=== PATIENT | male | born 1975 | race Two or more races ===

== ENCOUNTER 2018-02-17 08:10 | Inpatient (IN) | payer OTHER ==
[2018-02-17 08:55] VITALS: BMI 29.7
--- NOTE | 2018-02-17 09:33 | HP ---
CIWA Score - CIWA Score Nausea/Vomitin Muscle Tremors: 3 Anxiety: 2 Agitation: 2 Paroxysmal Sweats: 1-Minimal Palms Moist Orientation: 0-Oriented Tacttile Disturbances: 1-Very Mild Itch/Numbness Auditory Disturbances: 1-Very Mild Visual Disturbances: 1-Very Mild Sensitivity Headache: 2-Mild CIWA-Ar Total Score: 15 Admission ROS BHS - HPI Chief Complaint: i need help to stop drinking alcohol,cocaine,pcp,marijuana Allergies/Adverse Reactions: Allergies Allergy/AdvReac Type Severity Reaction Status Date / Time No Known Allergies Allergy Verified 02/17/18 08:50 History of Present Illness: this 42 years old male with alcohol,cocaine,marijuana,pcp dependence,seeking detox,last treatment 02/21/11 to 03/11/11 rehab as [facility] history of hypertension on medication nicotine dependence longest period of sobriety 1 year depression pain in left foot for 1 year s/p surgery of left knee ,post trauma,s/p arthroscopic surgery of left knee Exam Limitations: No Limitations - Ebola screening Have you traveled outside of the country in the last 21 days: No Have you had contact with anyone from an Ebola affected area: No Have you been sick,other than usual withdrawal symptoms: No Do you have a fever: No - Review of Systems Constitutional: Malaise, Night Sweats, Unintentional Wgt. Loss EENT: reports: Nose Congestion Respiratory: reports: No Symptoms reported Cardiac: reports: No Symptoms Reported GI: reports: Nausea, Abdominal cramping : reports: No Symptoms Reported Musculoskeletal: reports: Back Pain, Joint Pain, Muscle Pain Integumentary: reports: Dryness Neuro: reports: Headache, Tremors Endocrine: reports: No Symptoms Reported Hematology: reports: No Symptoms Reported Psychiatric: reports: Judgement Intact, Mood/Affect Appropiate, Orientated x3 Patient History - Patient Medical History Hx Anemia: No Hx Asthma: No Hx Chronic Obstructive Pulmonary Disease (COPD): No Hx Cancer: No Hx Cardiac Disorders: No Hx Congestive Heart Failure: No Hx Hypertension: Yes (hypertension on no medication) Hx Hypercholesterolemia: No Hx Pacemaker: No HX Cerebrovascular Accident: No Hx Seizures: No Hx Dementia: No Hx Diabetes: No Hx Gastrointestinal Disorders: No Hx Liver Disease: No Hx Genitourinary Disorders: No Hx Sexually Transmitted Disorders: No Hx Renal Disease (ESRD): No Hx Thyroid Disease: No Hx Human Immunodeficiency Virus (HIV): No Hx Hepatitis C: No Hx Depression: Yes (no med) Hx Suicide Attempt: No Hx Bipolar Disorder: No Hx Schizophrenia: No Other Medical History: no suicidal,no homicidal - Patient Surgical History Past Surgical History: Yes Hx Orthopedic Surgery: Yes (s/p arthroscopic sugery left knee in 2018 post trauma) - PPD History Previous Implant?: Yes Documented Results: Negative w/o proof Implanted On Prior R Admission?: No PPD to be Administered?: Yes - Smoking Cessation Smoking history: Current every day smoker Have you smoked in the past 12 months: Yes Hx Chewing Tobacco Use: No Initiated information on smoking cessation: Yes 'Breaking Loose' booklet given: 02/17/18 - Substances Abused PCP Route: Smoking Frequency: Daily Amount used: 5 TIMES Age of first use: 13 Date of Last Use: 02/16/18 Cocaine Route: Inhalation Frequency: Daily Amount used: 2 GRAMS Age of first use: 13 Date of Last Use: 02/16/18 Marijuana/Hashish Route: Smoking Frequency: Daily Amount used: 5 TIMES Age of first use: 13 Date of Last Use: 02/16/18 Alcohol Route: Oral Frequency: Daily Amount used: 2-3 PINTS OF VODKA OR HENESSEY Age of first use: 13 Date of Last Use: 02/16/18 Family Disease History - Family Disease History Family History: Denies Admission Physical Exam [facility] - Vital Signs Vital Signs: Vital Signs - 24 hr 02/17/18 08:53 Temperature 95.6 F L Pulse Rate 86 Respiratory 16 Rate Blood Pressure 158/108 H - Physical General Appearance: Yes: Moderate Distress, Tremorous, Sweating, Anxious HEENTM: Yes: Normal ENT Inspection, CHARITY, Pharynx Normal Respiratory: Yes: Lungs Clear, Normal Breath Sounds, No Respiratory Distress Neck: Yes: Within Normal Limits, Supple, Trachea in good position Breast: Yes: Within Normal Limits Cardiology: Yes: Within Normal Limits, Regular Rhythm, Regular Rate, S1, S2 Abdominal: Yes: Within Normal Limits, Normal Bowel Sounds, Non Tender, Soft Genitourinary: Yes: Within Normal Limits Back: Yes: Muscle Spasm Musculoskeletal: Yes: Back pain, Muscle Pain Extremities: Yes: Tremors, Other (pain in the left foot s/p arthroscopic surgery of left knee) Neurological: Yes: kindergarten aide II-XII NML intact, Fully Oriented, Alert, Motor Strength 5/5 Integumentary: Yes: Dry Lymphatic: Yes: Within Normal Limits - Diagnostic (1) Alcohol dependence with uncomplicated withdrawal Current Visit: Yes Status: Acute (2) Cocaine dependence Current Visit: Yes Status: Acute (3) PCP (phencyclidine) abuse Current Visit: Yes Status: Acute (4) Cannabis dependence Current Visit: Yes Status: Acute (5) Depression Current Visit: Yes Status: Acute (6) Nicotine dependence Current Visit: Yes Status: Acute (7) Arthritis of left foot Current Visit: Yes Status: Acute (8) Left knee pain Current Visit: Yes Status: Acute (9) Essential hypertension Current Visit: Yes Status: Acute Cleared for Admission S - Detox or Rehab [facility] Level of Care: Medically Managed Detox Regimen/Protocol: Librium S Breath Alcohol Content Breath Alcohol Content: 0 Urine Drug Screen - Results Drug Screen Negative: No Urine Drug Screen Results: THC-Marijuana, GLORIA-Cocaine, BZO-Benzodiazepines
[2018-02-17] MEDS ORDERED: LOPERAMIDE HCL 2 MG CAPSULE PO PRN (09:50)
[2018-02-17] MEDS ORDERED: MENTHOL/PHENOL 1 EACH UD MM PRN (09:50)
[2018-02-17] MEDS ORDERED: MAGNESIUM HYDROX 2400MG/30ML ORAL SUSPENSION 30 ML CUP PO PRN (09:50)
[2018-02-17] MEDS ORDERED: P-EPHED 60MG/TRIPROLIDI 2.5MG TABLET PO PRN (09:50)
[2018-02-17] MEDS ORDERED: NICOTINE POLACRILEX 4 MG GUM BUC PRN (09:50)
[2018-02-17] MEDS ORDERED: MAG HYDROX/AL HYDROX/SIMETH 30 ML UNIT-DOSE CUP PO PRN (09:50)
[2018-02-17] MEDS ORDERED: MAGNESIUM CITRATE 300 ML BOTTLE PO PRN (09:50)
[2018-02-17] MEDS ORDERED: guaiFENesin/D-METHORPHAN HB 10 ML UNIT-DOSE CUPS PO PRN (09:50)
[2018-02-17] MEDS ORDERED: cloNIDine HCL 0.1 MG TABLET PO ONE (10:42)
[2018-02-17] MEDS ORDERED: chlordiazePOXIDE HCL 25 MG CAPSULE PO ONE (10:45)
[2018-02-17] MEDS: HYDROCHLOROTHIAZIDE 25 MG TABLET (FP) PO SCH (12:02)
[2018-02-17] MEDS: amLODIPine BESYLATE 5 MG TABLET (FP) PO SCH (12:02)
[2018-02-17] MEDS: chlordiazePOXIDE HCL 25 MG CAPSULE PO SCH ×3 (12:02→22:19)
[2018-02-17] MEDS: NICOTINE 21 MG/24 HOURS TOPICAL PATCH TD SCH (12:04)
[2018-02-17] MEDS: PRENATAL VITAMINS W/ FOLIC ACID TABLET (FP) PO SCH (12:07)
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
--- NOTE | 2018-02-17 16:36 | EKG ---
Test Reason : Blood Pressure : / mmHG Vent. Rate : 069 BPM Atrial Rate : 069 BPM P-R Int : 148 ms QRS Dur : 098 ms QT Int : 440 ms P-R-T Axes : 063 -28 026 degrees QTc Int : 471 ms NORMAL SINUS RHYTHM POSSIBLE LEFT ATRIAL ENLARGEMENT INCOMPLETE RIGHT BUNDLE BRANCH BLOCK SEPTAL INFARCT , AGE UNDETERMINED ABNORMAL ECG NO PREVIOUS ECGS AVAILABLE Confirmed by MD Viv, Saji ([id number]) on 02/17/2018 4:35:49 PM Referred By: Confirmed By:Saji Nam MD
[2018-02-17] MEDS: IBUPROFEN 400 MG TABLET (FP) PO PRN (16:53)
[2018-02-17] MEDS ORDERED: MELATONIN 5 MG TABLETS PO PRN (22:00)
[2018-02-17] MEDS: ZOLPIDEM TARTRATE 10 MG TABLET (PARK CARE ONLY) PO PRN (22:19)
[2018-02-17] MEDS: THIAMINE HCL 100 MG TABLET (FP) PO SCH (22:19)
[2018-02-18] MEDS: IBUPROFEN 400 MG TABLET (FP) PO PRN ×2 (05:55→17:37)
[2018-02-18] MEDS: chlordiazePOXIDE HCL 25 MG CAPSULE PO SCH ×4 (05:55→22:37)
[2018-02-18 10:05] LABS: HEMATOCRIT 47.1 % (35.4-49); HEMOGLOBIN 15.4 GM/dL (11.7-16.9); MCH 28.5 pg (25.7-33.7); MCHC 32.7 g/dl (32.0-35.9); MEAN PLT VOLUME 8.4 fl (7.5-11.1); PLATELET COUNT 603 K/MM3 (134-434); RBC 5.42 M/mm3 (4.00-5.60); RDW 14.2 % (11.9-15.9); WHITE BLOOD COUNT 12.8 K/mm3 (4.0-10.0)
[2018-02-18 10:14] LABS: ALBUMIN 3.8 g/dl (3.4-5.0); ALK PHOS 104 U/L (45-117); ANION GAP 8 MMOL/L (8-16); BILIRUBIN,TOTAL 0.6 mg/dL (0.2-1); BLOOD UREA NITROGEN 10 mg/dL (7-18); CALCIUM 9.5 mg/dL (8.5-10.1); CHLORIDE 102 mmol/L (98-107); CO2 28 mmol/L (21-32); CREATININE 0.7 mg/dL (0.55-1.3); GLUCOSE,RANDOM 93 mg/dL (74-106); POTASSIUM 4.2 mmol/L (3.5-5.1); SGOT/AST 7 U/L (15-37); SGPT/ALT 16 U/L (13-61); SODIUM 138 mmol/L (136-145); TOT PROT 7.3 g/dl (6.4-8.2)
[2018-02-18] MEDS: NICOTINE 21 MG/24 HOURS TOPICAL PATCH TD SCH (10:45)
[2018-02-18] MEDS: HYDROCHLOROTHIAZIDE 25 MG TABLET (FP) PO SCH (10:45)
[2018-02-18] MEDS: chlordiazePOXIDE HCL 25 MG CAPSULE PO PRN (10:45)
[2018-02-18] MEDS: amLODIPine BESYLATE 5 MG TABLET (FP) PO SCH (10:45)
[2018-02-18] MEDS: PRENATAL VITAMINS W/ FOLIC ACID TABLET (FP) PO SCH (10:45)
[2018-02-18] MEDS: ACETAMINOPHEN 325 MG TABLET (FP) PO PRN ×2 (10:46→22:39)
[2018-02-18] MEDS ORDERED: FLU VACCINE QUAD 60 MCG/0.5 ML (MDV 18-19) IM ONE (12:00)
[2018-02-18] MEDS ORDERED: PNEUMOCOCCAL 23 VACCINE 0.5 ML VIAL IM ONE (12:00)
[2018-02-18] MEDS ORDERED: PNEUMOC 13-VAL CONJ-DIP CRM/PF 0.5 ML DISP.SYRIN IM ONE (12:00)
[2018-02-18] MEDS: BACITRACIN 0.9 GM PACKET TP SCH ×2 (13:37→22:37)
--- NOTE | 2018-02-18 15:34 | PN ---
S CIWA - CIWA Score Nausea/Vomitin Muscle Tremors: 4-Moderate,w/Arms Extend Anxiety: 4-Mod. Anxious/Guarded Agitation: 4-Moderately Restless Paroxysmal Sweats: 3 Orientation: 0-Oriented Tacttile Disturbances: 0-None Auditory Disturbances: 0-None Visual Disturbances: 0-None Headache: 0-None Present CIWA-Ar Total Score: 18 BHS Progress Note (SOAP) Subjective: Back pain, body ache, interrupted sleep Objective: 02/18/18 15:31 Last Vital Signs Temp Pulse Resp BP Pulse Ox 98.6 F 58 L 18 143/70 02/18/18 14:21 02/18/18 14:21 02/18/18 14:21 02/18/18 14:21 Laboratory Tests 02/17/18 02/18/18 02/18/18 10:00 05:45 05:45 WBC 12.8 H RBC 5.42 Hgb 15.4 Hct 47.1 MCV 87.0 MCH 28.5 MCHC 32.7 RDW 14.2 Plt Count 603 H MPV 8.4 Sodium 138 Potassium 4.2 Chloride 102 Carbon Dioxide 28 Anion Gap 8 BUN 10 Creatinine 0.7 Creat Clearance w eGFR > 60 Random Glucose 93 Calcium 9.5 Total Bilirubin 0.6 AST 7 L ALT 16 Alkaline Phosphatase 104 Total Protein 7.3 Albumin 3.8 RPR Titer HIV 1&2 Antibody Screen Negative HIV P24 Antigen Negative 02/18/18 05:45 WBC RBC Hgb Hct MCV MCH MCHC RDW Plt Count MPV Sodium Potassium Chloride Carbon Dioxide Anion Gap BUN Creatinine Creat Clearance w eGFR Random Glucose Calcium Total Bilirubin AST ALT Alkaline Phosphatase Total Protein Albumin RPR Titer Nonreactive HIV 1&2 Antibody Screen HIV P24 Antigen Labs reviewed: plt 603, wbc 12.8 Assessment: 02/18/18 15:34 Withdrawal symptoms Noted with thrombocytosis and leukocytosis Plan: Continue detox Thrombocytosis: repeat CBC Leukocytosis: asymptomatic, repeat CBC, follow up on UA
[2018-02-18] MEDS: THIAMINE HCL 100 MG TABLET (FP) PO SCH (22:37)
[2018-02-18] MEDS: ZOLPIDEM TARTRATE 10 MG TABLET (PARK CARE ONLY) PO PRN (22:37)
[2018-02-19] MEDS: IBUPROFEN 400 MG TABLET (FP) PO PRN (06:02)
[2018-02-19] MEDS: chlordiazePOXIDE HCL 25 MG CAPSULE PO SCH (06:02)
[2018-02-19] MEDS: amLODIPine BESYLATE 5 MG TABLET (FP) PO SCH (10:38)
[2018-02-19] MEDS: BACITRACIN 0.9 GM PACKET TP SCH ×2 (10:38→22:42)
[2018-02-19] MEDS: HYDROCHLOROTHIAZIDE 25 MG TABLET (FP) PO SCH (10:38)
[2018-02-19] MEDS: METHYL SALICYLATE/MENTHOL OINT 30 GM TUBE TP SCH ×2 (10:39→22:42)
[2018-02-19] MEDS: NICOTINE 21 MG/24 HOURS TOPICAL PATCH TD SCH (10:39)
[2018-02-19] MEDS: PRENATAL VITAMINS W/ FOLIC ACID TABLET (FP) PO SCH (10:39)
[2018-02-19] MEDS: chlordiazePOXIDE 5 MG CAPSULE PO SCH ×3 (10:41→22:42)
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
[2018-02-19] MEDS ORDERED: cloNIDine HCL 0.1 MG TABLET PO ONE (15:22)
[2018-02-19] MEDS: chlordiazePOXIDE HCL 25 MG CAPSULE PO PRN (17:07)
[2018-02-19] MEDS: IBUPROFEN 600 MG TABLET (FP) PO PRN (17:07)
[2018-02-19 17:55] LABS: URINE APPEARANCE CLEAR; URINE BILIRUBIN NEGATIVE (<2.0 mg/dL); URINE COLOR STRAW; URINE GLUCOSE (UA) NEGATIVE (NEGATIVE); URINE KETONE NEGATIVE (NEGATIVE); URINE LEUK ESTERASE NEGATIVE (NEGATIVE); URINE NITRITE NEGATIVE (NEGATIVE); URINE PROTEIN NEGATIVE (NEGATIVE); URINE UROBILINOGEN NEGATIVE mg/dL (0.2-1.0)
[2018-02-19] MEDS: ZOLPIDEM TARTRATE 10 MG TABLET (PARK CARE ONLY) PO PRN (22:41)
[2018-02-19] MEDS: THIAMINE HCL 100 MG TABLET (FP) PO SCH (22:41)
[2018-02-19] MEDS: CLOTRIMAZOLE 1% CREAM 15 GM TUBE TP SCH (22:43)
[2018-02-20] MEDS: chlordiazePOXIDE 5 MG CAPSULE PO SCH (05:35)
[2018-02-20 10:26] LABS: BASO % 0.7 % (0-2.0); EOS % 1.9 % (0-4.5); HEMOGLOBIN 14.1 GM/dL (11.7-16.9); LYMPH % 23.3 % (8-40)
[2018-02-20 10:29] LABS: MCH 28.7 pg (25.7-33.7); MCHC 33.5 g/dl (32.0-35.9); MEAN CELL VOLUME 85.7 fl (80-96); MEAN PLT VOLUME 7.7 fl (7.5-11.1); MONO % 13.5 % (3.8-10.2); NEUT % 60.6 % (42.8-82.8); PLATELET COUNT 546 K/MM3 (134-434); WHITE BLOOD COUNT 9.9 K/mm3 (4.0-10.0)
[2018-02-20] MEDS: amLODIPine BESYLATE 5 MG TABLET (FP) PO SCH (10:48)
[2018-02-20] MEDS: BACITRACIN 0.9 GM PACKET TP SCH ×2 (10:48→22:29)
[2018-02-20] MEDS: PRENATAL VITAMINS W/ FOLIC ACID TABLET (FP) PO SCH (10:48)
[2018-02-20] MEDS: HYDROCHLOROTHIAZIDE 25 MG TABLET (FP) PO SCH (10:48)
[2018-02-20] MEDS: chlordiazePOXIDE HCL 10 MG CAPSULE PO SCH ×3 (10:48→22:28)
[2018-02-20] MEDS: METHYL SALICYLATE/MENTHOL OINT 30 GM TUBE TP SCH ×2 (10:48→22:29)
[2018-02-20] MEDS: CLOTRIMAZOLE 1% CREAM 15 GM TUBE TP SCH ×2 (10:49→22:29)
[2018-02-20] MEDS: NICOTINE 21 MG/24 HOURS TOPICAL PATCH TD SCH (10:50)
[2018-02-20] MEDS: IBUPROFEN 600 MG TABLET (FP) PO PRN ×3 (10:52→22:30)
[2018-02-20] MEDS ORDERED: hydrOXYzine PAMOATE 50 MG CAPSULE (FP) PO PRN ×2 (14:52→14:54)
--- NOTE | 2018-02-20 15:01 | PN ---
S Progress Note (SOAP) Subjective: Interrupted sleep, anxious, sweating Objective: 02/20/18 14:56 Last Vital Signs Temp Pulse Resp BP Pulse Ox 98.2 F 97 H 18 128/83 02/20/18 13:49 02/20/18 13:49 02/20/18 13:49 02/20/18 13:49 Laboratory Tests 02/17/18 02/18/18 02/18/18 10:00 05:45 05:45 WBC 12.8 H RBC 5.42 Hgb 15.4 Hct 47.1 MCV 87.0 MCH 28.5 MCHC 32.7 RDW 14.2 Plt Count 603 H MPV 8.4 Absolute Neuts (auto) Neutrophils % Lymphocytes % Monocytes % Eosinophils % Basophils % Nucleated RBC % Sodium 138 Potassium 4.2 Chloride 102 Carbon Dioxide 28 Anion Gap 8 BUN 10 Creatinine 0.7 Creat Clearance w eGFR > 60 Random Glucose 93 Calcium 9.5 Total Bilirubin 0.6 AST 7 L ALT 16 Alkaline Phosphatase 104 Total Protein 7.3 Albumin 3.8 Urine Color Urine Appearance Urine pH Ur Specific [place] Urine Protein Urine Glucose (UA) Urine Ketones Urine Blood Urine Nitrite Urine Bilirubin Urine Urobilinogen Ur Leukocyte Esterase RPR Titer HIV 1&2 Antibody Screen Negative HIV P24 Antigen Negative 02/18/18 02/19/18 02/20/18 05:45 14:58 07:00 WBC 9.9 RBC 4.90 Hgb 14.1 Hct 42.0 MCV 85.7 MCH 28.7 MCHC 33.5 RDW 14.0 Plt Count 546 H MPV 7.7 Absolute Neuts (auto) 6.0 Neutrophils % 60.6 Lymphocytes % 23.3 Monocytes % 13.5 H Eosinophils % 1.9 Basophils % 0.7 Nucleated RBC % 0 Sodium Potassium Chloride Carbon Dioxide Anion Gap BUN Creatinine Creat Clearance w eGFR Random Glucose Calcium Total Bilirubin AST ALT Alkaline Phosphatase Total Protein Albumin Urine Color Straw Urine Appearance Clear Urine pH 8.0 Ur Specific [place] 1.009 Urine Protein Negative Urine Glucose (UA) Negative Urine Ketones Negative Urine Blood Negative Urine Nitrite Negative Urine Bilirubin Negative Urine Urobilinogen Negative Ur Leukocyte Esterase Negative RPR Titer Nonreactive HIV 1&2 Antibody Screen HIV P24 Antigen Labs reviewed: wbc 9.9 (was 12.8), plt 546 (was 603) Assessment: 02/20/18 15:00 Withdrawal symptoms Noted with resolved leukocytosis and thrombocytosis Plan: Continue detox Leukocytosis: resolved Thrombocytosis: trending downward, follow up with PCP for further monitoring
[2018-02-20] MEDS: ZOLPIDEM TARTRATE 10 MG TABLET (PARK CARE ONLY) PO PRN (21:33)
[2018-02-20] MEDS: THIAMINE HCL 100 MG TABLET (FP) PO SCH (22:28)
[2018-02-21] MEDS: ACETAMINOPHEN 325 MG TABLET (FP) PO PRN ×2 (02:10→09:58)
[2018-02-21] MEDS: IBUPROFEN 600 MG TABLET (FP) PO PRN (05:59)
[2018-02-21] MEDS: chlordiazePOXIDE HCL 10 MG CAPSULE PO SCH (05:59)
[2018-02-21 06:29] VITALS: BP 124/72; PULSE 84; TEMP 97
[2018-02-21] MEDS: HYDROCHLOROTHIAZIDE 25 MG TABLET (FP) PO SCH (09:57)
[2018-02-21] MEDS: amLODIPine BESYLATE 5 MG TABLET (FP) PO SCH (09:57)
[2018-02-21] MEDS: PRENATAL VITAMINS W/ FOLIC ACID TABLET (FP) PO SCH (09:59)
--- NOTE | 2018-02-21 12:27 | DS ---
[facility] Detox Discharge Summary Admission Date: 02/17/18 Discharge Date: 02/21/18 - History Present History: Alcohol Dependence, Cannabis Dependence, Cocaine Dependence Pertinent Past History: Left knee surgery a year ago - Physical Exam Results Vital Signs: Vital Signs Temperature 97 F L 02/21/18 06:28 Pulse Rate 84 02/21/18 06:28 Respiratory Rate 18 02/21/18 06:28 Blood Pressure 124/72 02/21/18 06:28 O2 Sat by Pulse Oximetry (%) Pertinent Admission Physical Exam Findings: Withdrawal sx Laboratory Last Values WBC 9.9 K/mm3 (4.0-10.0) 02/20/18 07:00 RBC 4.90 M/mm3 (4.00-5.60) 02/20/18 07:00 Hgb 14.1 GM/dL (11.7-16.9) 02/20/18 07:00 Hct 42.0 % (35.4-49) 02/20/18 07:00 MCV 85.7 fl (80-96) 02/20/18 07:00 MCH 28.7 pg (25.7-33.7) 02/20/18 07:00 MCHC 33.5 g/dl (32.0-35.9) 02/20/18 07:00 RDW 14.0 % (11.9-15.9) 02/20/18 07:00 Plt Count 546 K/MM3 (134-434) H 02/20/18 07:00 MPV 7.7 fl (7.5-11.1) 02/20/18 07:00 Absolute Neuts (auto) 6.0 K/mm3 (1.5-8.0) 02/20/18 07:00 Neutrophils % 60.6 % (42.8-82.8) 02/20/18 07:00 Lymphocytes % 23.3 % (8-40) 02/20/18 07:00 Monocytes % 13.5 % (3.8-10.2) H 02/20/18 07:00 Eosinophils % 1.9 % (0-4.5) 02/20/18 07:00 Basophils % 0.7 % (0-2.0) 02/20/18 07:00 Nucleated RBC % 0 % (0-0) 02/20/18 07:00 Sodium 138 mmol/L (136-145) 02/18/18 05:45 Potassium 4.2 mmol/L (3.5-5.1) 02/18/18 05:45 Chloride 102 mmol/L (98-107) 02/18/18 05:45 Carbon Dioxide 28 mmol/L (21-32) 02/18/18 05:45 Anion Gap 8 MMOL/L (8-16) 02/18/18 05:45 BUN 10 mg/dL (7-18) 02/18/18 05:45 Creatinine 0.7 mg/dL (0.55-1.3) 02/18/18 05:45 Creat Clearance w eGFR > 60 (>60) 02/18/18 05:45 Random Glucose 93 mg/dL (74-106) 02/18/18 05:45 Calcium 9.5 mg/dL (8.5-10.1) 02/18/18 05:45 Total Bilirubin 0.6 mg/dL (0.2-1) 02/18/18 05:45 AST 7 U/L (15-37) L 02/18/18 05:45 ALT 16 U/L (13-61) 02/18/18 05:45 Alkaline Phosphatase 104 U/L (45-117) 02/18/18 05:45 Total Protein 7.3 g/dl (6.4-8.2) 02/18/18 05:45 Albumin 3.8 g/dl (3.4-5.0) 02/18/18 05:45 Urine Color Straw 02/19/18 14:58 Urine Appearance Clear 02/19/18 14:58 Urine pH 8.0 (5.0-8.0) 02/19/18 14:58 Ur Specific [place] 1.009 (1.001-1.035) 02/19/18 14:58 Urine Protein Negative (NEGATIVE) 02/19/18 14:58 Urine Glucose (UA) Negative (NEGATIVE) 02/19/18 14:58 Urine Ketones Negative (NEGATIVE) 02/19/18 14:58 Urine Blood Negative (NEGATIVE) 02/19/18 14:58 Urine Nitrite Negative (NEGATIVE) 02/19/18 14:58 Urine Bilirubin Negative (<2.0 mg/dL) 02/19/18 14:58 Urine Urobilinogen Negative mg/dL (0.2-1.0) 02/19/18 14:58 Ur Leukocyte Esterase Negative (NEGATIVE) 02/19/18 14:58 RPR Titer Nonreactive (NONREACTIVE) 02/18/18 05:45 HIV 1&2 Antibody Screen Negative 02/17/18 10:00 HIV P24 Antigen Negative 02/17/18 10:00 Labs noted - Treatment Hospital Course: Detox Protocol Followed, Detoxed Safely, Responded well, Discharged Condition Good - Medication Discharge Medications: Ambulatory Orders Unobtainable 02/17/18 - Diagnosis (1) Alcohol dependence with uncomplicated withdrawal Status: Acute (2) Substance induced mood disorder Status: Acute (3) Thrombocytosis Status: Acute (4) Cannabis dependence Status: Chronic (5) Cocaine dependence Status: Chronic (6) Essential hypertension Status: Chronic (7) Nicotine dependence Status: Chronic Qualifiers: Nicotine product type: cigarettes Substance use status: uncomplicated Qualified Code(s): F17.210 - Nicotine dependence, cigarettes, uncomplicated (8) PCP (phencyclidine) abuse Status: Chronic - AMA Did Patient Leave Against Medical Advice: No
== END 2018-02-21 10:00 | disposition home or self-care (01) | DRG 774 ==
LOC: YASAS 08:10 → Y3N 10:11
PROC: HZ2ZZZZ Detoxification Services for Substance Abuse Treatment (ICD-10-PCS; principal; 2018-02-17)
DX: F10.230 Alcohol dependence with withdrawal, uncomplicated (principal); F14.20 Cocaine dependence, uncomplicated; F12.20 Cannabis dependence, uncomplicated; F16.10 Hallucinogen abuse, uncomplicated; F17.210 Nicotine dependence, cigarettes, uncomplicated; F19.24 Other psychoactive substance dependence with psychoactive substance-induced mood disorder; I10 Essential (primary) hypertension; D47.3 Essential (hemorrhagic) thrombocythemia; D72.829 Elevated white blood cell count, unspecified; G47.00 Insomnia, unspecified; M25.562 Pain in left knee; M13.872 Other specified arthritis, left ankle and foot
CPT/HCPCS: 36415; 73630-TC-LT; 80053; 81003; 85025; 85027; 86593; 87389; 90688; 93005; 93010; G0008; J0735

== ENCOUNTER 2018-02-23 11:19 | Inpatient (IN) | payer OTHER ==
[2018-02-23 11:32] VITALS: BMI 30.4
--- NOTE | 2018-02-23 13:43 | HP ---
Admission [facility] Chief Complaint: I am here for rehab after being in detox last week. I was recently d/c from detox on 3N at [facility] Allergies/Adverse Reactions: Allergies Allergy/AdvReac Type Severity Reaction Status Date / Time No Known Allergies Allergy Verified 02/23/18 11:59 History of Present Illness: pt is a 42yr old male with a history of alcohol, pcp, cocaine and cannabis dependence seeking rehab after detox here at [facility]. Pt completed detox and d/ c 02/15/18. Exam Limitations: No Limitations - Ebola screening Have you traveled outside of the country in the last 21 days: No Have you had contact with anyone from an Ebola affected area: No Have you been sick,other than usual withdrawal symptoms: No Do you have a fever: No - Review of Systems Constitutional: No Symptoms Reported EENT: reports: Tearing Respiratory: reports: No Symptoms reported Cardiac: reports: No Symptoms Reported GI: reports: Constipated : reports: No Symptoms Reported Musculoskeletal: reports: Joint Pain (foot pain d/t injury a week ago however recent x-ray shows no fx.) Integumentary: reports: No Symptoms Reported Neuro: reports: No Symptoms reported Endocrine: reports: No Symptoms Reported Hematology: reports: No Symptoms Reported Psychiatric: reports: Judgement Intact, Orientated x3, Agitated, Anxious Other Systems: Reviewed and Negative Patient History - Patient Medical History Hx Anemia: No Hx Asthma: No Hx Chronic Obstructive Pulmonary Disease (COPD): No Hx Cancer: No Hx Cardiac Disorders: No Hx Congestive Heart Failure: No Hx Hypertension: Yes Hx Hypercholesterolemia: No Hx Pacemaker: No HX Cerebrovascular Accident: No Hx Seizures: No Hx Dementia: No Hx Diabetes: No Hx Gastrointestinal Disorders: No Hx Liver Disease: No Hx Genitourinary Disorders: No Hx Sexually Transmitted Disorders: Yes (gonorrhea at age 15) Hx Renal Disease (ESRD): No Hx Thyroid Disease: No Hx Human Immunodeficiency Virus (HIV): No (negative) Hx Hepatitis C: No (negative) Hx Depression: Yes Hx Suicide Attempt: No (denies) Hx Bipolar Disorder: No Hx Schizophrenia: No - Patient Surgical History Past Surgical History: Yes Hx Neurologic Surgery: No Hx Cataract Extraction: No Hx Cardiac Surgery: No Hx Lung Surgery: No Hx Breast Surgery: No Hx Breast Biopsy: No Hx Abdominal Surgery: No Hx Appendectomy: No Hx Cholecystectomy: No Hx Genitourinary Surgery: No Hx Section: No Hx Orthopedic Surgery: Yes (s/p arthroscopic sugery left knee in 2018 post trauma) Anesthesia Reaction: No - PPD History Previous Implant?: Yes Documented Results: Negative w/proof Implanted On Prior R Admission?: Yes Date: 02/19/18 Results: 0 mm PPD to be Administered?: No - Reproductive History Patient is a Female of Child Bearing Age (11 -55 yrs old): No - Smoking Cessation Smoking history: Current every day smoker Have you smoked in the past 12 months: Yes Aproximately how many cigarettes per day: 40 Cigars Per Day: 0 Hx Chewing Tobacco Use: No Initiated information on smoking cessation: Yes 'Breaking Loose' booklet given: 02/23/18 - Substance & Tx. History Hx Alcohol Use: Yes Hx Substance Use: Yes Substance Use Type: Alcohol, Cocaine Hx Substance Use Treatment: Yes ([facility] 01/2018) - Substances Abused Cocaine Route: Inhalation Frequency: Daily Amount used: $100 Age of first use: 13 Date of Last Use: 02/22/18 PCP Route: Smoking Frequency: 3-6 times per week Amount used: $30 Age of first use: 15 Date of Last Use: 02/22/18 Alcohol-cognac/beer Route: Oral Frequency: Daily Amount used: 2 pts./2-6 pks. Age of first use: 13 Date of Last Use: 02/22/18 Marijuana Route: Smoking Frequency: Daily Amount used: $50 Age of first use: 12 Date of Last Use: 02/16/18 Family Disease History - Family Disease History Family History: Denies Admission Physical Exam S - Vital Signs Vital Signs: Vital Signs - 24 hr 02/23/18 11:27 Temperature 97.5 F L Pulse Rate 109 H Respiratory 18 Rate Blood Pressure 157/104 H - Physical General Appearance: Yes: Appropriately Dressed, Mild Distress, Sweating HEENTM: Yes: Hearing grossly Normal, Normal Voice Respiratory: Yes: Lungs Clear, Normal Breath Sounds, No Respiratory Distress Neck: Yes: No masses,lesions,Nodules Breast: Yes: Within Normal Limits Cardiology: Yes: Regular Rhythm, Regular Rate, S1, S2, Tachycardia Abdominal: Yes: Normal Bowel Sounds Genitourinary: Yes: Within Normal Limits Back: Yes: Normal Inspection Musculoskeletal: Yes: Muscle Pain Extremities: Yes: Normal Capillary Refill, Normal Inspection, Non-Tender, Tremors Neurological: Yes: Fully Oriented, Alert Integumentary: Yes: Normal Color Lymphatic: Yes: Within Normal Limits - Diagnostic (1) Alcohol dependence with uncomplicated withdrawal Current Visit: No Status: Chronic (2) Cannabis dependence Current Visit: No Status: Chronic (3) Cocaine dependence Current Visit: No Status: Chronic Qualifiers: Substance use status: uncomplicated Qualified Code(s): F14.20 - Cocaine dependence, uncomplicated (4) Essential hypertension Current Visit: No Status: Chronic (5) Nicotine dependence Current Visit: Yes Status: Chronic Qualifiers: Nicotine product type: cigarettes Substance use status: uncomplicated Qualified Code(s): F17.210 - Nicotine dependence, cigarettes, uncomplicated (6) PCP (phencyclidine) abuse Current Visit: No Status: Chronic Cleared for Admission [facility] - Detox or Rehab [facility] Level of Care: Medically Managed Claeared for Rehab Admission: Yes [facility] Breath Alcohol Content Breath Alcohol Content: 0 Urine Drug Screen - Results Drug Screen Negative: No Urine Drug Screen Results: BZO-Benzodiazepines Inpatient Rehab Admission - Initial Determination Are CD services needed?: Yes Free of communicable disease: Yes Not in need of hospitalization: Yes - Rehab Admission Criteria Previous failed treatment: Yes Poor recovery environment: Yes Comorbidities: Yes
[2018-02-23] MEDS ORDERED: NEBIVOLOL 5 MG TABLET (FP) PO ONE (13:46)
[2018-02-23] MEDS ORDERED: MAGNESIUM HYDROX 2400MG/30ML ORAL SUSPENSION 30 ML CUP PO PRN (13:58)
[2018-02-23] MEDS ORDERED: MAGNESIUM CITRATE 300 ML BOTTLE PO PRN (13:58)
[2018-02-23] MEDS ORDERED: MAG HYDROX/AL HYDROX/SIMETH 30 ML UNIT-DOSE CUP PO PRN (13:58)
[2018-02-23] MEDS ORDERED: NICOTINE POLACRILEX 4 MG GUM BUC PRN (13:58)
[2018-02-23] MEDS ORDERED: MENTHOL/PHENOL 1 EACH UD MM PRN (13:58)
[2018-02-23] MEDS ORDERED: P-EPHED 60MG/TRIPROLIDI 2.5MG TABLET PO PRN (13:58)
[2018-02-23] MEDS ORDERED: LOPERAMIDE HCL 2 MG CAPSULE PO PRN (13:58)
[2018-02-23] MEDS ORDERED: guaiFENesin/D-METHORPHAN HB 10 ML UNIT-DOSE CUPS PO PRN (13:58)
[2018-02-23] MEDS: IBUPROFEN 400 MG TABLET (FP) PO PRN ×2 (15:59→22:01)
[2018-02-23 19:17] LABS: URINE APPEARANCE CLEAR; URINE BILIRUBIN NEGATIVE (<2.0 mg/dL); URINE COLOR YELLOW; URINE GLUCOSE (UA) NEGATIVE (NEGATIVE); URINE KETONE NEGATIVE (NEGATIVE); URINE LEUK ESTERASE NEGATIVE (NEGATIVE); URINE NITRITE NEGATIVE (NEGATIVE); URINE PROTEIN NEGATIVE (NEGATIVE)
[2018-02-23] MEDS: hydrOXYzine PAMOATE 50 MG CAPSULE (FP) PO PRN (22:01)
[2018-02-23] MEDS: THIAMINE HCL 100 MG TABLET (FP) PO SCH (22:01)
[2018-02-23] MEDS: MELATONIN 5 MG TABLETS PO PRN (22:01)
[2018-02-24] MEDS: IBUPROFEN 600 MG TABLET (FP) PO PRN ×2 (06:14→21:44)
--- NOTE | 2018-02-24 08:02 | HP ---
Psychiatrist Admission - Data Date of interview: 02/24/18 Admission source: Self-referred Identifying data: This is the second [facility] admission for this 42 years old single Black male, fatherof 2 children, unemployed supported by his parents, domiciled living with his family Medical History: Significant for hypertension, history of treatment for gonorrhea at age 15 and post traumatic arthroscopic surgery left knee in 2018. Smokes cigarettes 2 ppd Psychiatric History: Patient denies history of previous psychiatric treatment. However according to Dr Ferrara whom he saw 0n 02/17/18 while in detox, he reports a significant decline in global functioning since his divorce + loss of custody of his children (years ago). 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 Patient still expresses disinterest for psychiatric follow-up or medications. Physical/Sexual Abuse/Trauma History: Denies history of emotional.physical or sexual abuse as well as DV relationship. No serviceTraumatized by his divorce and separation from his children. Additional Comment: Reports history of multiple previous arrests including one felony conviction. Denies current parole/probation. However reports having an open involving possession and sale of marijuana. Told director underwriter sales that he has a court appointment but does know the date Vital Signs: Vital Signs - 24 hr 02/23/18 02/24/18 02/24/18 11:27 00:30 03:30 Temperature 97.5 F L Pulse Rate 109 H Respiratory 18 16 16 Rate Blood Pressure 157/104 H 02/24/18 02/24/18 07:11 07:25 Temperature 97.4 F L Pulse Rate 66 69 Respiratory 18 Rate Blood Pressure 142/100 154/97 Allergies/Adverse Reactions: Allergies Allergy/AdvReac Type Severity Reaction Status Date / Time No Known Allergies Allergy Verified 02/23/18 11:59 Date of last physical exam: 02/23/18 Concur with the findings of this exam: Yes - Substance Abuse/Tx History Hx Alcohol Use: Yes Hx Substance Use: Yes (Begab pcp at 15, smokes $30 3-6x weekly. Last smoked on ) Substance Use Type: Alcohol (Started drinking alcohol at age 13, consumes 2 pints of cognac & 2x 6pk of beer daily. Last drank on 02/22/18), Cocaine ( Started using cocaine at age 13, consumes $100 worth daily. Last used on 02/22/18 ), Marijuana (Started smoking marijuana at age 12, consumes $50 worth daily. Last smoked on 02/16/18) Hx Substance Use Treatment: Yes (one previous inpt detox & one inpt rehab admissions @ [facility]) Mental Status Exam - Mental Status Exam Alert and Oriented to: Time, Place, Person Cognitive Function: Fair Patient Appearance: Well Groomed Mood: Hopeful, Euthymic Affect: Constricted Patient Behavior: Cooperative Speech Pattern: Clear Voice Loudness: Normal Thought Process: Intact, Goal Oriented Thought Disorder: Not Present Hallucinations: Denies Suicidal Ideation: Denies Homicidal Ideation: Denies Insight/Judgement: Fair Sleep: Poorly Appetite: Good Muscle strength/Tone: Normal Gait/Station: Normal Psychiatric Findings - Problem List ([place] 1, 2,3) (1) Alcohol dependence Current Visit: Yes Status: Acute (2) Cocaine dependence Current Visit: No Status: Acute Qualifiers: Substance use status: uncomplicated Qualified Code(s): F14.20 - Cocaine dependence, uncomplicated (3) Cannabis dependence Current Visit: No Status: Acute (4) Phencyclidine dependence Current Visit: Yes Status: Acute (5) Nicotine dependence Current Visit: Yes Status: Chronic Qualifiers: Nicotine product type: cigarettes Substance use status: uncomplicated Qualified Code(s): F17.210 - Nicotine dependence, cigarettes, uncomplicated (6) Substance-induced sleep disorder Current Visit: Yes Status: Acute (7) Arthritis of left foot Current Visit: No Status: Chronic (8) Essential hypertension Current Visit: No Status: Chronic - Initial Treatment Plan Initial Treatment Plan: 1) Continue Ambien 10 mg po HS prn for insomnia. 2) Monitor progress
[2018-02-24] MEDS ORDERED: PT OWN MED DRAWER 7, Y5N ONE (09:16)
[2018-02-24] MEDS ORDERED: NEBIVOLOL 10 MG TABLET (FP) PO SCH (10:00)
[2018-02-24] MEDS: PRENATAL VITAMINS W/ FOLIC ACID TABLET (FP) PO SCH (10:12)
[2018-02-24] MEDS: NEBIVOLOL 5 MG TABLET (FP) PO SCH (10:12)
[2018-02-24] MEDS: ACETAMINOPHEN 325 MG TABLET (FP) PO PRN (10:14)
[2018-02-24] MEDS: NICOTINE 21 MG/24 HOURS TOPICAL PATCH TD SCH (10:15)
--- NOTE | 2018-02-24 11:07 | EKG ---
Test Reason : Blood Pressure : / mmHG Vent. Rate : 100 BPM Atrial Rate : 100 BPM P-R Int : 134 ms QRS Dur : 092 ms QT Int : 378 ms P-R-T Axes : 063 -45 040 degrees QTc Int : 487 ms NORMAL SINUS RHYTHM LEFT ANTERIOR FASCICULAR BLOCK PROLONGED QT ABNORMAL ECG Confirmed by Stephane Alvarez MD ([id number]) on 02/24/2018 11:07:12 AM Referred By: Confirmed By:Stephane Alvarez MD
[2018-02-24] MEDS: THIAMINE HCL 100 MG TABLET (FP) PO SCH (21:44)
[2018-02-24] MEDS: MELATONIN 5 MG TABLETS PO PRN (21:45)
[2018-02-25] MEDS: IBUPROFEN 600 MG TABLET (FP) PO PRN ×2 (02:03→21:29)
[2018-02-25] MEDS: hydrOXYzine PAMOATE 50 MG CAPSULE (FP) PO PRN (06:38)
[2018-02-25] MEDS: ACETAMINOPHEN 325 MG TABLET (FP) PO PRN (06:38)
[2018-02-25] MEDS: NICOTINE 21 MG/24 HOURS TOPICAL PATCH TD SCH (10:19)
[2018-02-25] MEDS: PRENATAL VITAMINS W/ FOLIC ACID TABLET (FP) PO SCH (10:19)
[2018-02-25] MEDS: NEBIVOLOL 5 MG TABLET (FP) PO SCH (10:20)
--- NOTE | 2018-02-25 10:34 | PN ---
S Progress Note Note: PT REPORTS PAIN, REDNESS AND SWELLING TO LEFT FOOT. UNABLE TO SLEEP DUE TO PAIN. REPORTS FALL ONE WEEK AGO AND WENT TO [facility] FOR CARE AND WAS TOLD NO FRACTURE. FOOT EXAM: REDNESS, SWELLING AND OPEN CRACKS AND WOUND BETWEEN WEBS UNDER THE DIGITS. S/P FALL CELLULITIS PLAN:KEEP FOOT CLEAN APPLY BACITRACIN OINTMENT KEFLEX 500 MG PO BID X 5-7 DAYS.
[2018-02-25] MEDS ORDERED: CEPHALEXIN MONOHYDRATE 500 MG CAPSULE (UD) PO ONE (10:50)
[2018-02-25] MEDS: BACITRACIN 0.9 GM PACKET TP SCH ×2 (11:42→21:28)
[2018-02-25] MEDS: MELATONIN 5 MG TABLETS PO PRN (21:28)
[2018-02-25] MEDS: CEPHALEXIN MONOHYDRATE 500 MG CAPSULE (UD) PO SCH (21:28)
[2018-02-25] MEDS: THIAMINE HCL 100 MG TABLET (FP) PO SCH (21:28)
[2018-02-26] MEDS: IBUPROFEN 600 MG TABLET (FP) PO PRN (06:15)
[2018-02-26] MEDS: NICOTINE 21 MG/24 HOURS TOPICAL PATCH TD SCH (10:24)
[2018-02-26] MEDS: CEPHALEXIN MONOHYDRATE 500 MG CAPSULE (UD) PO SCH ×2 (10:24→21:31)
[2018-02-26] MEDS: PRENATAL VITAMINS W/ FOLIC ACID TABLET (FP) PO SCH (10:24)
[2018-02-26] MEDS: BACITRACIN 0.9 GM PACKET TP SCH ×2 (10:24→21:30)
[2018-02-26] MEDS: ACETAMINOPHEN 325 MG TABLET (FP) PO PRN (10:26)
[2018-02-26] MEDS: NEBIVOLOL 5 MG TABLET (FP) PO SCH (11:52)
[2018-02-26] MEDS: hydrOXYzine PAMOATE 50 MG CAPSULE (FP) PO PRN (21:31)
[2018-02-26] MEDS: MELATONIN 5 MG TABLETS PO PRN (21:31)
[2018-02-26] MEDS: THIAMINE HCL 100 MG TABLET (FP) PO SCH (21:31)
[2018-02-27] MEDS: ZOLPIDEM TARTRATE 10 MG TABLET (PARK CARE ONLY) PO PRN ×2 (00:46→22:03)
[2018-02-27] MEDS: IBUPROFEN 600 MG TABLET (FP) PO PRN ×2 (00:46→06:36)
[2018-02-27] MEDS: NICOTINE 21 MG/24 HOURS TOPICAL PATCH TD SCH (10:23)
[2018-02-27] MEDS: ACETAMINOPHEN 325 MG TABLET (FP) PO PRN ×2 (10:24→22:01)
[2018-02-27] MEDS: PRENATAL VITAMINS W/ FOLIC ACID TABLET (FP) PO SCH (10:24)
[2018-02-27] MEDS: CEPHALEXIN MONOHYDRATE 500 MG CAPSULE (UD) PO SCH ×2 (10:24→22:01)
[2018-02-27] MEDS: BACITRACIN 0.9 GM PACKET TP SCH ×2 (10:24→22:01)
[2018-02-27] MEDS: NEBIVOLOL 5 MG TABLET (FP) PO SCH (10:24)
[2018-02-27] MEDS: THIAMINE HCL 100 MG TABLET (FP) PO SCH (22:01)
[2018-02-28] MEDS: IBUPROFEN 600 MG TABLET (FP) PO PRN (06:33)
[2018-02-28] MEDS: NICOTINE 21 MG/24 HOURS TOPICAL PATCH TD SCH (09:21)
[2018-02-28] MEDS: NEBIVOLOL 5 MG TABLET (FP) PO SCH (09:21)
[2018-02-28] MEDS: BACITRACIN 0.9 GM PACKET TP SCH ×2 (09:21→21:59)
[2018-02-28] MEDS: PRENATAL VITAMINS W/ FOLIC ACID TABLET (FP) PO SCH (09:21)
[2018-02-28] MEDS: CEPHALEXIN MONOHYDRATE 500 MG CAPSULE (UD) PO SCH ×2 (09:21→21:59)
[2018-02-28] MEDS: THIAMINE HCL 100 MG TABLET (FP) PO SCH (21:59)
[2018-02-28] MEDS: ACETAMINOPHEN 325 MG TABLET (FP) PO PRN (22:01)
[2018-02-28] MEDS: ZOLPIDEM TARTRATE 10 MG TABLET (PARK CARE ONLY) PO PRN (22:02)
[2018-03-01] MEDS: ACETAMINOPHEN 325 MG TABLET (FP) PO PRN ×3 (06:09→21:37)
[2018-03-01] MEDS: BACITRACIN 0.9 GM PACKET TP SCH ×2 (10:12→21:35)
[2018-03-01] MEDS: NEBIVOLOL 5 MG TABLET (FP) PO SCH (10:12)
[2018-03-01] MEDS: PRENATAL VITAMINS W/ FOLIC ACID TABLET (FP) PO SCH (10:12)
[2018-03-01] MEDS: NICOTINE 21 MG/24 HOURS TOPICAL PATCH TD SCH (10:13)
[2018-03-01] MEDS: CEPHALEXIN MONOHYDRATE 500 MG CAPSULE (UD) PO SCH ×2 (10:13→21:36)
[2018-03-01] MEDS: IBUPROFEN 600 MG TABLET (FP) PO PRN (18:22)
[2018-03-01] MEDS: THIAMINE HCL 100 MG TABLET (FP) PO SCH (21:36)
[2018-03-01] MEDS: ZOLPIDEM TARTRATE 10 MG TABLET (PARK CARE ONLY) PO PRN (22:25)
[2018-03-02] MEDS: ACETAMINOPHEN 325 MG TABLET (FP) PO PRN ×2 (06:31→16:55)
[2018-03-02] MEDS: PRENATAL VITAMINS W/ FOLIC ACID TABLET (FP) PO SCH (10:47)
[2018-03-02] MEDS: BACITRACIN 0.9 GM PACKET TP SCH (10:47)
[2018-03-02] MEDS: CEPHALEXIN MONOHYDRATE 500 MG CAPSULE (UD) PO SCH ×3 (10:47→23:34)
[2018-03-02] MEDS: NICOTINE 21 MG/24 HOURS TOPICAL PATCH TD SCH (10:47)
[2018-03-02] MEDS: NEBIVOLOL 5 MG TABLET (FP) PO SCH (10:47)
[2018-03-02] MEDS: IBUPROFEN 600 MG TABLET (FP) PO PRN ×2 (10:48→21:49)
--- NOTE | 2018-03-02 13:32 | PN ---
S Progress Note (SOAP) Subjective: c/o pain in (L) foot at 3rd and 4th toe. Pain started before admission but has proceeded to get worse. Objective: 03/02/18 13:29 Open lesion between 3rd and 4th toe w/ purulent drainage. Tender to touch. Pedal pulses present. Vital Signs Temperature 97.6 F 03/02/18 07:27 Pulse Rate 77 03/02/18 09:30 Respiratory Rate 18 03/02/18 09:30 Blood Pressure 141/93 03/02/18 09:30 O2 Sat by Pulse Oximetry (%) Assessment: Cellulitis (L) 3rd/4th toe. 03/02/18 13:32 Plan: Increase antibiotics. Wet to dry dressing BID. Elevate foot while in bed.
[2018-03-02] MEDS: hydrOXYzine PAMOATE 50 MG CAPSULE (FP) PO PRN (21:47)
[2018-03-02] MEDS: THIAMINE HCL 100 MG TABLET (FP) PO SCH (21:47)
[2018-03-03] MEDS: CEPHALEXIN MONOHYDRATE 500 MG CAPSULE (UD) PO SCH ×3 (06:48→17:37)
[2018-03-03] MEDS: IBUPROFEN 600 MG TABLET (FP) PO PRN ×2 (06:49→22:29)
[2018-03-03] MEDS: NICOTINE 21 MG/24 HOURS TOPICAL PATCH TD SCH (10:12)
[2018-03-03] MEDS: PRENATAL VITAMINS W/ FOLIC ACID TABLET (FP) PO SCH (10:12)
[2018-03-03] MEDS: NEBIVOLOL 10 MG TABLET (FP) PO SCH (10:13)
[2018-03-03] MEDS: ACETAMINOPHEN 325 MG TABLET (FP) PO PRN (10:15)
[2018-03-03] MEDS: THIAMINE HCL 100 MG TABLET (FP) PO SCH (22:28)
[2018-03-03] MEDS: hydrOXYzine PAMOATE 50 MG CAPSULE (FP) PO PRN (22:28)
[2018-03-03] MEDS: ZOLPIDEM TARTRATE 10 MG TABLET (PARK CARE ONLY) PO PRN (22:29)
[2018-03-04] MEDS: CEPHALEXIN MONOHYDRATE 500 MG CAPSULE (UD) PO SCH ×4 (00:13→18:38)
[2018-03-04] MEDS: IBUPROFEN 600 MG TABLET (FP) PO PRN ×2 (06:36→18:38)
[2018-03-04] MEDS: PRENATAL VITAMINS W/ FOLIC ACID TABLET (FP) PO SCH (10:31)
[2018-03-04] MEDS: NICOTINE 21 MG/24 HOURS TOPICAL PATCH TD SCH (10:32)
[2018-03-04] MEDS: NEBIVOLOL 10 MG TABLET (FP) PO SCH (10:32)
[2018-03-04] MEDS: THIAMINE HCL 100 MG TABLET (FP) PO SCH (21:30)
[2018-03-04] MEDS: ZOLPIDEM TARTRATE 10 MG TABLET (PARK CARE ONLY) PO PRN (21:31)
[2018-03-04] MEDS: ACETAMINOPHEN 325 MG TABLET (FP) PO PRN (21:32)
[2018-03-04] MEDS ORDERED: ZOLPIDEM TARTRATE 5 MG TABLET PO PRN (22:00)
[2018-03-05] MEDS: CEPHALEXIN MONOHYDRATE 500 MG CAPSULE (UD) PO SCH ×5 (00:16→23:46)
[2018-03-05] MEDS: IBUPROFEN 600 MG TABLET (FP) PO PRN ×3 (02:34→22:05)
[2018-03-05] MEDS: ACETAMINOPHEN 325 MG TABLET (FP) PO PRN ×2 (06:05→17:09)
[2018-03-05] MEDS ORDERED: PT OWN MED DRAWER 7, Y5N ONE ×2 (09:27→10:14)
[2018-03-05] MEDS: NICOTINE 21 MG/24 HOURS TOPICAL PATCH TD SCH (10:12)
[2018-03-05] MEDS: PRENATAL VITAMINS W/ FOLIC ACID TABLET (FP) PO SCH (10:12)
[2018-03-05] MEDS: NEBIVOLOL 10 MG TABLET (FP) PO SCH (10:14)
--- NOTE | 2018-03-05 11:55 | PN ---
Psychiatric Progress Note Vital Signs: Vital Signs Period Temp Pulse Resp BP Sys/Hernandez Pulse Ox Last 24 Hr 97.5 F 75-81 16-18 143-151/89-91 Date of Session: 03/05/18 Chief Complaint:: Discharge Note HPI: Patient addressing Alcohol, Cocaine, Cannabis and Phecyclidine Dependence comorbid with Nicotine Dependence and Substance-Induced Sleep Disorder ROS: Arthritis left foot, HTN were medically managed Current Medications: Active Medications Generic Name Dose Route Start Last Admin Trade Name Freq PRN Reason Stop Dose Admin Acetaminophen 650 mg 02/23/18 13:58 03/05/18 06:05 Tylenol - PO 650 mg Q4H PRN Administration FEVER Al Hydroxide/Mg Hydroxide 30 ml 02/23/18 13:58 Mylanta Oral Suspension - PO Q6H PRN DYSPEPSIA Cephalexin HCl 500 mg 03/02/18 18:00 03/05/18 06:05 Keflex - PO 500 mg Q6HPO YESENIA Administration Eucalyptus/Menthol/Phenol/Sorbitol 1 each 02/23/18 13:58 Cepastat Lozenge - MM Q4H PRN SORE THROAT Guaifenesin 10 ml 02/23/18 13:58 Robitussin Dm - PO Q6H PRN COUGH Hydroxyzine Pamoate 50 mg 02/23/18 13:58 03/03/18 22:28 Vistaril - PO 50 mg Q4H PRN Administration AGITATION Ibuprofen 600 mg 02/24/18 01:17 03/05/18 10:14 Motrin - PO 600 mg Q6H PRN Administration Pain level 4-6 Loperamide HCl 4 mg 02/23/18 13:58 Imodium - PO Q6H PRN DIARRHEA Magnesium Citrate 300 ml 02/23/18 13:58 Citroma - PO Q48H PRN CONSTIPATION Magnesium Hydroxide 30 ml 02/23/18 13:58 02/27/18 10:46 Milk Of Magnesia - PO 30 ml DAILY PRN Administration CONSTIPATION Melatonin 5 mg 02/23/18 22:00 02/26/18 21:31 Melatonin PO 5 mg HS PRN Administration INSOMNIA Nebivolol 10 mg 03/03/18 10:00 03/05/18 10:14 Bystolic - PO 10 mg DAILY YESENIA Administration Nicotine 21 mg 02/24/18 10:00 03/05/18 10:12 Nicoderm Patch - TD Not Given DAILY YESENIA Nicotine Polacrilex 4 mg 02/23/18 13:58 Nicorette Gum - BUC Q2H PRN NICOTINE REPLACEMENT RX Multivit/Folic Acid/Iron 1 tab 02/24/18 10:00 03/05/18 10:12 Vitamins (Sjr) - PO 1 tab DAILY YESENIA Administration Pseudoephedrine/Triprolidine 1 combo 02/23/18 13:58 Actifed - PO TID PRN NASAL CONGESTION Thiamine HCl 100 mg 02/23/18 22:00 03/04/18 21:30 Vitamin B1 - PO 100 mg HS YESENIA Administration Zolpidem Tartrate 10 mg 03/04/18 22:00 Ambien - PO HS PRN INSOMNIA Current Side Effect: No Lab tests ordered: Yes Lab tests reviewed: Yes Provider note:: Patient will complete this program on 03/06/18. He has met his treatment goals and will continue to address his issues in outpatient treatment program at [facility]. Told consumer loan underwriter that from his participation in this program, he has learned he importance of making meetings and have a sponsor. He is stable for discharge on 03/06/18 Total face to face time:: 35 Mental Status Exam - Mental Status Exam Alert and Oriented to: Time, Place, Person Cognitive Function: Fair Patient Appearance: Well Groomed Mood: Hopeful, Euthymic Affect: Appropriate Patient Behavior: Wandering, Cooperative Voice Loudness: Normal Thought Process: Intact, Goal Oriented Thought Disorder: Not Present Hallucinations: Denies Suicidal Ideation: Denies Homicidal Ideation: Denies Insight/Judgement: Fair Sleep: Fair Appetite: Good Muscle strength/Tone: Normal Gait/Station: Normal Psychiatric Treatment Plan - Problem List (1) Alcohol dependence Current Visit: Yes (2) Cocaine dependence Current Visit: No Qualifiers: Substance use status: uncomplicated Qualified Code(s): F14.20 - Cocaine dependence, uncomplicated (3) Cannabis dependence Current Visit: No (4) Phencyclidine dependence Current Visit: Yes (5) Nicotine dependence Current Visit: Yes Qualifiers: Nicotine product type: cigarettes Substance use status: uncomplicated Qualified Code(s): F17.210 - Nicotine dependence, cigarettes, uncomplicated (6) Substance-induced sleep disorder Current Visit: Yes (7) Arthritis of left foot Current Visit: No (8) Essential hypertension Current Visit: No Initial treatment plan: Patient will be discharged tomorrow and referred to [facility] program for outpatient treatment
[2018-03-05] MEDS: THIAMINE HCL 100 MG TABLET (FP) PO SCH (22:01)
[2018-03-06] MEDS: ACETAMINOPHEN 325 MG TABLET (FP) PO PRN (06:21)
[2018-03-06] MEDS: CEPHALEXIN MONOHYDRATE 500 MG CAPSULE (UD) PO SCH (06:21)
[2018-03-06 07:23] VITALS: BP 158/98; PULSE 75; TEMP 98.3
[2018-03-06] MEDS ORDERED: PT OWN MED DRAWER 7, Y5N ONE (08:55)
[2018-03-06] MEDS: NICOTINE 21 MG/24 HOURS TOPICAL PATCH TD SCH (09:09)
[2018-03-06] MEDS: PRENATAL VITAMINS W/ FOLIC ACID TABLET (FP) PO SCH (09:09)
[2018-03-06] MEDS: NEBIVOLOL 10 MG TABLET (FP) PO SCH (09:09)
[2018-03-06] MEDS: IBUPROFEN 600 MG TABLET (FP) PO PRN (09:11)
== END 2018-03-06 10:23 | disposition home or self-care (01) | DRG 772 ==
LOC: YASAS 11:19 → Y3W 13:31
PROVIDERS: ADMIT Psychiatry & Neurology Psychiatry; ATTEND Psychiatry & Neurology Psychiatry
PROC: HZ42ZZZ Group Counseling for Substance Abuse Treatment, Cognitive-Behavioral (ICD-10-PCS; principal; 2018-02-23)
DX: F10.20 Alcohol dependence, uncomplicated (principal); F14.20 Cocaine dependence, uncomplicated; F16.20 Hallucinogen dependence, uncomplicated; F12.20 Cannabis dependence, uncomplicated; F17.210 Nicotine dependence, cigarettes, uncomplicated; F19.282 Other psychoactive substance dependence with psychoactive substance-induced sleep disorder; I10 Essential (primary) hypertension; M13.871 Other specified arthritis, right ankle and foot; L03.116 Cellulitis of left lower limb; R00.0 Tachycardia, unspecified; Z87.438 Personal history of other diseases of male genital organs
CPT/HCPCS: 81003; 93005; 93010

== ENCOUNTER 2019-05-10 14:15 | Inpatient (IN) | payer OTHER ==
[2019-05-10 15:06] VITALS: BMI 26.7
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
[2019-05-10] MEDS ORDERED: IBUPROFEN 400 MG TABLET (FP) PO PRN (15:57)
[2019-05-10] MEDS ORDERED: guaiFENesin 200 MG/10 ML 10 ML UNIT-DOSE CUPS PO PRN (15:57)
[2019-05-10] MEDS ORDERED: MAGNESIUM CITRATE 300 ML BOTTLE PO PRN (15:57)
[2019-05-10] MEDS ORDERED: MENTHOL/PHENOL 1 EACH UD MM PRN (15:57)
[2019-05-10] MEDS ORDERED: P-EPHED 60MG/TRIPROLIDI 2.5MG TABLET PO PRN (15:57)
[2019-05-10] MEDS ORDERED: MAGNESIUM HYDROX 2400MG/30ML ORAL SUSPENSION 30 ML CUP PO PRN (15:57)
[2019-05-10] MEDS ORDERED: MAG HYDROX/AL HYDROX/SIMETH 30 ML UNIT-DOSE CUP PO PRN (15:57)
[2019-05-10] MEDS ORDERED: ACETAMINOPHEN 325 MG TABLET (FP) PO PRN (15:57)
[2019-05-10] MEDS ORDERED: ONDANSETRON *ODT* 4 MG TABLET SL PRN (15:57)
[2019-05-10] MEDS ORDERED: NICOTINE POLACRILEX 2 MG GUM BUC PRN (15:57)
[2019-05-10] MEDS ORDERED: SENNOSIDES 8.6MG TABLET (FP) PO PRN (15:59)
[2019-05-10] MEDS ORDERED: chlordiazePOXIDE HCL 10 MG CAPSULE PO PRN (16:03)
[2019-05-10] MEDS: ACETAMINOPHEN 325 MG TABLET (FP) PO PRN (18:31)
[2019-05-10] MEDS: chlordiazePOXIDE HCL 25 MG CAPSULE PO SCH (21:50)
[2019-05-10] MEDS: CILOSTAZOL 50 MG TABLET (FP) PO SCH (22:10)
[2019-05-10] MEDS: GABAPENTIN 300 MG CAPSULE (FP) PO SCH (22:11)
[2019-05-10] MEDS: THIAMINE HCL 100 MG TABLET (FP) PO SCH (22:11)
[2019-05-10] MEDS: MELATONIN 5 MG TABLETS PO PRN (22:11)
[2019-05-11] MEDS: ACETAMINOPHEN 325 MG TABLET (FP) PO PRN ×3 (01:59→21:35)
[2019-05-11] MEDS: chlordiazePOXIDE HCL 25 MG CAPSULE PO SCH ×3 (06:18→21:34)
--- NOTE | 2019-05-11 09:49 | EKG ---
Test Reason : Blood Pressure : / mmHG Vent. Rate : 112 BPM Atrial Rate : 112 BPM P-R Int : 140 ms QRS Dur : 088 ms QT Int : 368 ms P-R-T Axes : 064 -54 063 degrees QTc Int : 502 ms SINUS TACHYCARDIA POSSIBLE LEFT ATRIAL ENLARGEMENT LEFT AXIS DEVIATION SEPTAL INFARCT , AGE UNDETERMINED ABNORMAL ECG WHEN COMPARED WITH ECG OF 23-FEB-2018 14:23, SEPTAL INFARCT IS NOW PRESENT Confirmed by MD Dre, Maikol ([id number]) on 05/11/2019 9:49:15 AM Referred By: FREEMAN Confirmed By:Maikol Erickson MD
[2019-05-11 09:54] LABS: HEMATOCRIT 42.1 % (35.4-49); HEMOGLOBIN 14.4 GM/dL (11.7-16.9); MCH 28.8 pg (25.7-33.7); MCHC 34.2 g/dl (32.0-35.9); MEAN CELL VOLUME 84.1 fl (80-96); MEAN PLT VOLUME 6.8 fl (7.5-11.1); PLATELET COUNT 516 K/MM3 (134-434); RBC 5.01 M/mm3 (4.00-5.60); RDW 14.7 % (11.9-15.9); WHITE BLOOD COUNT 7.2 K/mm3 (4.0-10.0)
[2019-05-11 09:58] LABS: URINE APPEARANCE CLEAR; URINE BILIRUBIN NEGATIVE (NEGATIVE); URINE COLOR YELLOW; URINE GLUCOSE (UA) NEGATIVE (NEGATIVE); URINE KETONE NEGATIVE (NEGATIVE); URINE LEUK ESTERASE NEGATIVE (NEGATIVE); URINE NITRITE NEGATIVE (NEGATIVE); URINE PROTEIN NEGATIVE (NEGATIVE); URINE UROBILINOGEN 0.2 mg/dL (0.2-1.0)
--- NOTE | 2019-05-11 10:09 | PN ---
[facility] CIWA - CIWA Score Nausea/Vomitin-No Nausea/No Vomiting Muscle Tremors: 3 Anxiety: 3 Agitation: 2 Paroxysmal Sweats: 2 Orientation: 0-Oriented Tacttile Disturbances: 0-None Auditory Disturbances: 0-None Visual Disturbances: 0-None Headache: 0-None Present CIWA-Ar Total Score: 10 S Progress Note (SOAP) Subjective: sweats shakes interrupted sleep body aches Objective: 05/11/19 10:08 Vital Signs Temperature 97.2 F L 05/11/19 09:30 Pulse Rate 107 H 05/11/19 09:30 Respiratory Rate 18 05/11/19 09:30 Blood Pressure 142/87 05/11/19 09:30 O2 Sat by Pulse Oximetry (%) Laboratory Tests 05/11/19 05/11/19 08:00 08:00 WBC 7.2 RBC 5.01 Hgb 14.4 Hct 42.1 MCV 84.1 MCH 28.8 MCHC 34.2 RDW 14.7 Plt Count 516 H MPV 6.8 L D Urine Color Yellow Urine Appearance Clear Urine pH 5.0 D Ur Specific [place] 1.021 Urine Protein Negative Urine Glucose (UA) Negative Urine Ketones Negative Urine Blood Negative Urine Nitrite Negative Urine Bilirubin Negative Urine Urobilinogen 0.2 Ur Leukocyte Esterase Negative aaox3 lying in bed no acute distress Assessment: 05/11/19 10:08 withdrawals Plan: continue detox increase fluids
[2019-05-11 10:36] LABS: ALBUMIN 3.5 g/dl (3.4-5.0); BILIRUBIN,TOTAL 0.7 mg/dL (0.2-1); BLOOD UREA NITROGEN 21.9 mg/dL (7-18); CALCIUM 9.2 mg/dL (8.5-10.1); CREATININE 0.8 mg/dL (0.55-1.3); POTASSIUM 3.7 mmol/L (3.5-5.1); TOT PROT 6.8 g/dl (6.4-8.2)
[2019-05-11] MEDS: ASPIRIN 81 MG CHEWABLE TABLETS PO SCH (10:45)
[2019-05-11] MEDS: GABAPENTIN 300 MG CAPSULE (FP) PO SCH ×2 (10:45→21:33)
[2019-05-11] MEDS: amLODIPine BESYLATE 5 MG TABLET (FP) PO SCH (10:46)
[2019-05-11] MEDS: NEBIVOLOL 10 MG TABLET (FP) PO SCH (10:46)
[2019-05-11] MEDS: CILOSTAZOL 50 MG TABLET (FP) PO SCH ×2 (10:46→21:33)
[2019-05-11] MEDS: ATORVASTATIN CA 20 MG TABLET (FP) PO SCH (10:46)
[2019-05-11] MEDS: PRENATAL VITAMINS W/ FOLIC ACID TABLET (FP) PO SCH (10:46)
[2019-05-11] MEDS: NICOTINE 14 MG/24 HOURS TOPICAL PATCH TD SCH (10:47)
[2019-05-11] MEDS: METHOCARBAMOL 500 MG TABLET PO PRN ×2 (10:49→17:09)
--- NOTE | 2019-05-11 16:22 | CONSULT ---
[facility] Psychiatric Consult - Data Date of interview: 05/11/19 Admission source: [facility] Identifying data: Revisit to [facility] and admission to [address] [place] [address] for this 43 y/o AA male, self-referred for detoxification treatment. KATIE issues : alcohol, cannabis, cocaine, phencyclidine, nicotine. Patient is , a father of two , domiciled, unemployed (disabled), deprived of income and supported by his relatives. Substance Abuse History: Discussed with the patient. Details in current [facility] report as follows : Smoking history: Current every day smoker. Have you smoked in the past 12 months: Yes. Aproximately how many cigarettes per day: 10. Cigars Per Day: 0. Hx Chewing Tobacco Use: No. Initiated information on smoking cessation: Yes. 'Breaking Loose' booklet given: 05/10/19. - Substance & Tx. History. Hx Alcohol Use: Yes. Hx Substance Use: No. Substance Use Type : Alcohol. Hx Substance Use Treatment: Yes. - Substances abused. Alcohol. Substance route: Oral. Frequency: Daily. Amount used: 1 pint of E&J tonya. Age of first use: 13. Date of last use: 05/10/19 Medical History: Medical profile is remarkable for hypertension and a history of arthroscopic surgery (left knee). Patient ambulates with a rolling walker. Psychiatric History: Patient denies history of psychiatric hospitalizations or suicide attempts. Negative history for psychiatric OPD care or intake of psychotropic medications. 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 Has not worked in the field since 1997 (drug use + involvement with law enforcement for possession and sale of cannabis). No reported history of suicide attempts. Physical/Sexual Abuse/Trauma History: Stressors : loss of a career, divorce, separation from his children, financial difficulties, addictions, medical illnesses and legal concerns. Additional Comment: Negative toxicology. Mental Status Exam - Mental Status Exam Alert and Oriented to: Time, Place, Person Cognitive Function: Good Patient Appearance: Unkempt, Disheveled Mood: Nervous, Withdrawn, Anxious Affect: Mood Congruent, Constricted Patient Behavior: Fatigued, Appropriate, Cooperative Speech Pattern: Clear Voice Loudness: Normal Thought Process: Intact, Goal Oriented Thought Disorder: Not Present Hallucinations: Denies Suicidal Ideation: Denies Homicidal Ideation: Denies Insight/Judgement: Poor Sleep: Poorly, Difficulty falling asleep Appetite: Fair Gait/Station: Other (moves around with rolling walker) Psychiatric Findings - Problem List ([place] 1, 2,3) (1) Alcohol dependence with uncomplicated withdrawal Current Visit: Yes Status: Acute (2) Nicotine dependence Current Visit: Yes Status: Chronic Qualifiers: Nicotine product type: cigarettes Substance use status: uncomplicated Qualified Code(s): F17.210 - Nicotine dependence, cigarettes, uncomplicated (3) History of depression Current Visit: Yes Status: Chronic Comment: Declines psychiatric OPD care. (4) Substance induced mood disorder Current Visit: Yes Status: Chronic (5) Insomnia Current Visit: Yes Status: Chronic - Initial Treatment Plan Initial Treatment Plan: Psychoeducation. Sleep hygiene. Detoxification. AA meetings. Support. Patient declines SSRI or any psychotropic medication not necessary for detoxification. Insomnia is addressed with melatonin at bedtime ( with patient's verbal consent). Observation.
[2019-05-11] MEDS: THIAMINE HCL 100 MG TABLET (FP) PO SCH (21:33)
[2019-05-11] MEDS: MELATONIN 5 MG TABLETS PO PRN (21:33)
[2019-05-11] MEDS: hydrOXYzine PAMOATE 25 MG CAPSULE (FP) PO PRN (23:24)
[2019-05-12] MEDS: chlordiazePOXIDE 5 MG CAPSULE PO SCH ×3 (06:43→21:58)
[2019-05-12] MEDS: ACETAMINOPHEN 325 MG TABLET (FP) PO PRN ×2 (06:45→23:52)
[2019-05-12] MEDS: ASPIRIN 81 MG CHEWABLE TABLETS PO SCH (10:20)
[2019-05-12] MEDS: PRENATAL VITAMINS W/ FOLIC ACID TABLET (FP) PO SCH (10:20)
[2019-05-12] MEDS: NICOTINE 14 MG/24 HOURS TOPICAL PATCH TD SCH (10:20)
[2019-05-12] MEDS: ATORVASTATIN CA 20 MG TABLET (FP) PO SCH (10:20)
[2019-05-12] MEDS: amLODIPine BESYLATE 5 MG TABLET (FP) PO SCH (10:20)
[2019-05-12] MEDS: GABAPENTIN 300 MG CAPSULE (FP) PO SCH ×2 (10:20→22:18)
[2019-05-12] MEDS: NEBIVOLOL 10 MG TABLET (FP) PO SCH (10:21)
[2019-05-12] MEDS: BISMUTH SUBSALICYLATE 524 MG/30 ML UD PO PRN ×2 (10:21→22:19)
[2019-05-12] MEDS: CILOSTAZOL 50 MG TABLET (FP) PO SCH ×2 (10:21→22:19)
[2019-05-12] MEDS: METHOCARBAMOL 500 MG TABLET PO PRN ×2 (10:24→19:53)
--- NOTE | 2019-05-12 10:26 | PN ---
S CIWA - CIWA Score Nausea/Vomitin-No Nausea/No Vomiting Muscle Tremors: 2 Anxiety: 2 Agitation: 2 Paroxysmal Sweats: 2 Orientation: 0-Oriented Tacttile Disturbances: 0-None Auditory Disturbances: 0-None Visual Disturbances: 0-None Headache: 0-None Present CIWA-Ar Total Score: 8 BHS Progress Note (SOAP) Subjective: feet pain body aches sweats interrupted sleep Objective: 05/12/19 10:26 Vital Signs Temperature 96 F L 05/12/19 05:00 Pulse Rate 84 05/12/19 05:00 Respiratory Rate 18 05/12/19 05:00 Blood Pressure 117/65 05/12/19 05:00 O2 Sat by Pulse Oximetry (%) Laboratory Tests 05/11/19 05/11/19 05/11/19 08:00 08:00 08:00 WBC 7.2 RBC 5.01 Hgb 14.4 Hct 42.1 MCV 84.1 MCH 28.8 MCHC 34.2 RDW 14.7 Plt Count 516 H MPV 6.8 L D Sodium 141 Potassium 3.7 Chloride 106 Carbon Dioxide 25 Anion Gap 10 BUN 21.9 H Creatinine 0.8 Est GFR (CKD-EPI)AfAm 126.81 Est GFR (CKD-EPI)NonAf 109.41 Random Glucose 154 H Calcium 9.2 Total Bilirubin 0.7 AST 7 L ALT 21 Alkaline Phosphatase 101 Total Protein 6.8 Albumin 3.5 Urine Color Urine Appearance Urine pH Ur Specific [place] Urine Protein Urine Glucose (UA) Urine Ketones Urine Blood Urine Nitrite Urine Bilirubin Urine Urobilinogen Ur Leukocyte Esterase RPR Titer Nonreactive HIV 1&2 Ag/Ab, 4th Gen 05/11/19 05/11/19 08:00 08:00 WBC RBC Hgb Hct MCV MCH MCHC RDW Plt Count MPV Sodium Potassium Chloride Carbon Dioxide Anion Gap BUN Creatinine Est GFR (CKD-EPI)AfAm Est GFR (CKD-EPI)NonAf Random Glucose Calcium Total Bilirubin AST ALT Alkaline Phosphatase Total Protein Albumin Urine Color Yellow Urine Appearance Clear Urine pH 5.0 D Ur Specific [place] 1.021 Urine Protein Negative Urine Glucose (UA) Negative Urine Ketones Negative Urine Blood Negative Urine Nitrite Negative Urine Bilirubin Negative Urine Urobilinogen 0.2 Ur Leukocyte Esterase Negative RPR Titer HIV 1&2 Ag/Ab, 4th Gen Non reactive aaox3 ambulating no acute distress Assessment: 05/12/19 10:26 withdrawals Plan: continue detox increase fluids
[2019-05-12] MEDS: THIAMINE HCL 100 MG TABLET (FP) PO SCH (22:18)
[2019-05-12] MEDS: MELATONIN 5 MG TABLETS PO PRN (22:19)
[2019-05-12] MEDS: hydrOXYzine PAMOATE 25 MG CAPSULE (FP) PO PRN (23:55)
[2019-05-13] MEDS ORDERED: chlordiazePOXIDE HCL 10 MG CAPSULE PO PRN
[2019-05-13] MEDS: chlordiazePOXIDE HCL 10 MG CAPSULE PO SCH ×3 (05:57→22:22)
[2019-05-13] MEDS: ACETAMINOPHEN 325 MG TABLET (FP) PO PRN ×2 (05:58→19:57)
[2019-05-13] MEDS: BISMUTH SUBSALICYLATE 524 MG/30 ML UD PO PRN ×4 (06:01→22:23)
[2019-05-13] MEDS: NEBIVOLOL 10 MG TABLET (FP) PO SCH (10:10)
[2019-05-13] MEDS: PRENATAL VITAMINS W/ FOLIC ACID TABLET (FP) PO SCH (10:10)
[2019-05-13] MEDS: GABAPENTIN 300 MG CAPSULE (FP) PO SCH ×2 (10:10→22:22)
[2019-05-13] MEDS: ATORVASTATIN CA 20 MG TABLET (FP) PO SCH (10:10)
[2019-05-13] MEDS: NICOTINE 14 MG/24 HOURS TOPICAL PATCH TD SCH (10:10)
[2019-05-13] MEDS: CILOSTAZOL 50 MG TABLET (FP) PO SCH ×2 (10:10→22:22)
[2019-05-13] MEDS: amLODIPine BESYLATE 5 MG TABLET (FP) PO SCH (10:10)
[2019-05-13] MEDS: ASPIRIN 81 MG CHEWABLE TABLETS PO SCH (10:10)
[2019-05-13] MEDS: METHOCARBAMOL 500 MG TABLET PO PRN ×2 (10:11→17:30)
--- NOTE | 2019-05-13 10:32 | PN ---
S CIWA - CIWA Score Nausea/Vomitin-No Nausea/No Vomiting Muscle Tremors: 2 Anxiety: 1-Mildly Anxious Agitation: 1-Slight > Activity Paroxysmal Sweats: 1-Minimal Palms Moist Orientation: 0-Oriented Tacttile Disturbances: 0-None Auditory Disturbances: 0-None Visual Disturbances: 0-None Headache: 0-None Present CIWA-Ar Total Score: 5 BHS Progress Note (SOAP) Subjective: body aches/spasms Objective: 05/13/19 10:31 Vital Signs Temperature 97.5 F L 05/13/19 09:49 Pulse Rate 90 05/13/19 09:49 Respiratory Rate 16 05/13/19 09:49 Blood Pressure 131/81 05/13/19 09:49 O2 Sat by Pulse Oximetry (%) aaox3 ambulating with walker no acute distress Assessment: 05/13/19 10:32 mild withdrawals Plan: continue detox roboxin prn d/c in am
[2019-05-13] MEDS: THIAMINE HCL 100 MG TABLET (FP) PO SCH (22:22)
[2019-05-13] MEDS: MELATONIN 5 MG TABLETS PO PRN (22:23)
[2019-05-14] MEDS ORDERED: chlordiazePOXIDE HCL 10 MG CAPSULE PO ONE (05:00)
[2019-05-14] MEDS: ACETAMINOPHEN 325 MG TABLET (FP) PO PRN (07:50)
[2019-05-14] MEDS ORDERED: IBUPROFEN 600 MG TABLET (FP) PO ONE (09:23)
[2019-05-14] MEDS: ATORVASTATIN CA 20 MG TABLET (FP) PO SCH (09:27)
[2019-05-14] MEDS: PRENATAL VITAMINS W/ FOLIC ACID TABLET (FP) PO SCH (09:27)
[2019-05-14] MEDS: ASPIRIN 81 MG CHEWABLE TABLETS PO SCH (09:27)
[2019-05-14] MEDS: GABAPENTIN 300 MG CAPSULE (FP) PO SCH (09:28)
[2019-05-14] MEDS: amLODIPine BESYLATE 5 MG TABLET (FP) PO SCH (09:28)
--- NOTE | 2019-05-14 09:28 | DS ---
[facility] Detox Discharge Summary Admission Date: 05/10/19 - History Present History: Alcohol Dependence, Cannabis Dependence, Cocaine Dependence, Pcp Dependence - Physical Exam Results Vital Signs: Vital Signs Temperature 98.1 F 05/14/19 07:21 Pulse Rate 99 H 05/14/19 07:21 Respiratory Rate 18 05/14/19 07:21 Blood Pressure 129/77 05/14/19 07:21 O2 Sat by Pulse Oximetry (%) Pertinent Admission Physical Exam Findings: Vital Signs Temperature 98.1 F 05/14/19 07:21 Pulse Rate 99 H 05/14/19 07:21 Respiratory Rate 18 05/14/19 07:21 Blood Pressure 129/77 05/14/19 07:21 O2 Sat by Pulse Oximetry (%) Laboratory Tests 05/11/19 05/11/19 05/11/19 08:00 08:00 08:00 WBC 7.2 RBC 5.01 Hgb 14.4 Hct 42.1 MCV 84.1 MCH 28.8 MCHC 34.2 RDW 14.7 Plt Count 516 H MPV 6.8 L D Sodium 141 Potassium 3.7 Chloride 106 Carbon Dioxide 25 Anion Gap 10 BUN 21.9 H Creatinine 0.8 Est GFR (CKD-EPI)AfAm 126.81 Est GFR (CKD-EPI)NonAf 109.41 Random Glucose 154 H Calcium 9.2 Total Bilirubin 0.7 AST 7 L ALT 21 Alkaline Phosphatase 101 Total Protein 6.8 Albumin 3.5 Urine Color Urine Appearance Urine pH Ur Specific [place] Urine Protein Urine Glucose (UA) Urine Ketones Urine Blood Urine Nitrite Urine Bilirubin Urine Urobilinogen Ur Leukocyte Esterase RPR Titer Nonreactive HIV 1&2 Ag/Ab, 4th Gen 05/11/19 05/11/19 08:00 08:00 WBC RBC Hgb Hct MCV MCH MCHC RDW Plt Count MPV Sodium Potassium Chloride Carbon Dioxide Anion Gap BUN Creatinine Est GFR (CKD-EPI)AfAm Est GFR (CKD-EPI)NonAf Random Glucose Calcium Total Bilirubin AST ALT Alkaline Phosphatase Total Protein Albumin Urine Color Yellow Urine Appearance Clear Urine pH 5.0 D Ur Specific [place] 1.021 Urine Protein Negative Urine Glucose (UA) Negative Urine Ketones Negative Urine Blood Negative Urine Nitrite Negative Urine Bilirubin Negative Urine Urobilinogen 0.2 Ur Leukocyte Esterase Negative RPR Titer HIV 1&2 Ag/Ab, 4th Gen Non reactive aaox3 ambulating with walker no acute distress - Treatment Hospital Course: Detox Protocol Followed, Detoxed Safely, Responded well, Discharged Condition Good, Rehab Referral Accepted Patient has Accepted a Rehab Referral to: pt declined rehab; referral provided - Medication Discharge Medications: Ambulatory Orders Nebivolol HCl [Bystolic] 10 mg PO DAILY #30 tablet 03/05/18 Acetaminophen [Tylenol] 650 mg PO PRN PRN 05/10/19 Amlodipine Besylate [Norvasc -] 5 mg PO DAILY 05/10/19 Aspirin [ASA -] 81 mg PO DAILY 05/10/19 Atorvastatin Calcium [Lipitor] 20 mg PO DAILY 05/10/19 Cilostazol [Pletal -] 100 mg PO BID 05/10/19 Diphenhydramine HCl [Benadryl -] 25 mg PO Q8H PRN 05/10/19 Gabapentin 300 mg PO BID 05/10/19 Ibuprofen [Motrin -] 600 mg PO PRN PRN 05/10/19 Metoclopramide HCl [Reglan -] 10 mg PO PRN 05/10/19 Polyethylene Glycol 3350 [Miralax (For Daily Use) -] 17 gm PO DAILY 05/10/19 Sennosides [Senna] 8.6 mg PO PRN PRN 05/10/19 - Diagnosis (1) Alcohol dependence with uncomplicated withdrawal Current Visit: Yes Status: Chronic (2) Essential hypertension Current Visit: Yes Status: Chronic (3) History of depression Current Visit: Yes Status: Chronic (4) Insomnia Current Visit: Yes Status: Chronic (5) Nicotine dependence Current Visit: Yes Status: Chronic Qualifiers: Nicotine product type: cigarettes Substance use status: uncomplicated Qualified Code(s): F17.210 - Nicotine dependence, cigarettes, uncomplicated (6) Substance induced mood disorder Current Visit: Yes Status: Chronic (7) Depressed affect Current Visit: Yes Status: Suspected (8) Cannabis dependence Current Visit: Yes Status: Chronic (9) Cellulitis of foot, left Current Visit: No Status: Acute (10) Cocaine dependence Current Visit: Yes Status: Chronic Qualifiers: Substance use status: uncomplicated Qualified Code(s): F14.20 - Cocaine dependence, uncomplicated (11) Left knee pain Current Visit: No Status: Acute (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
[2019-05-14] MEDS: NEBIVOLOL 10 MG TABLET (FP) PO SCH (09:31)
[2019-05-14] MEDS: CILOSTAZOL 50 MG TABLET (FP) PO SCH (09:32)
[2019-05-14] MEDS: NICOTINE 14 MG/24 HOURS TOPICAL PATCH TD SCH (09:32)
[2019-05-14 09:46] VITALS: BP 107/61; PULSE 96; TEMP 97.5
== END 2019-05-14 10:14 | disposition home or self-care (01) | DRG 774 ==
LOC: YASAS 14:15 → Y6N 17:11
PROVIDERS: ADMIT Allergy & Immunology; ATTEND Allergy & Immunology
PROC: HZ2ZZZZ Detoxification Services for Substance Abuse Treatment (ICD-10-PCS; principal; 2019-05-10)
DX: F10.230 Alcohol dependence with withdrawal, uncomplicated (principal); F10.220 Alcohol dependence with intoxication, uncomplicated; F14.20 Cocaine dependence, uncomplicated; F16.20 Hallucinogen dependence, uncomplicated; F12.20 Cannabis dependence, uncomplicated; F17.210 Nicotine dependence, cigarettes, uncomplicated; F19.24 Other psychoactive substance dependence with psychoactive substance-induced mood disorder; F19.282 Other psychoactive substance dependence with psychoactive substance-induced sleep disorder; F31.9 Bipolar disorder, unspecified; I10 Essential (primary) hypertension; G47.00 Insomnia, unspecified; L03.116 Cellulitis of left lower limb; M25.562 Pain in left knee; M13.872 Other specified arthritis, left ankle and foot; E78.5 Hyperlipidemia, unspecified; G62.9 Polyneuropathy, unspecified; Z87.438 Personal history of other diseases of male genital organs
CPT/HCPCS: 36415; 80053; 81003; 85027; 86593; 87389; 93005; 93010